=== PATIENT | male | born 2000 | race Two or more races ===

== ENCOUNTER 2022-06-01 21:32 | Emergency (ER) | payer SELFPAY ==
[~2022-06-01] VITALS: Ht 177.8 cm; Wt 70.0 kg
[2022-06-01] MEDS ORDERED: HYDROCODONE/ACETAMINOPHEN 5/325MG TABLET PO ONE (22:30)
[2022-06-01] MEDS ORDERED: KETOROLAC 30MG/ML VIAL IM ONE (22:30)
[2022-06-02 01:00] VITALS: BP 112/66
[2022-06-02] MEDS ORDERED: MORPHINE SULFATE 4 MG/ML CPJ (NOT FOR IM USE) IV STA (01:00)
[2022-06-02] MEDS ORDERED: ONDANSETRON HCL 4MG/2ML INJ IV STA (01:00)
[2022-06-02] MEDS ORDERED: NAPR-1176 MT (01:26)
[2022-06-02] MEDS ORDERED: CYCL10TA21 MT (01:26)
== END 2022-06-02 02:00 | disposition home or self-care (01) ==
LOC: ER 21:44
DX: M54.9 Dorsalgia, unspecified (principal)
CPT/HCPCS: 71045; 72128; 96372; 96374; 96375; 99285; J1885; J2270; J2405